=== PATIENT | male | born 1960 | race Caucasian/White ===

== ENCOUNTER 2018-01-18 11:42 | Day surgery (SDC) | payer MEDICARE ==
[~2018-01-18 11:42] MED LIST: Buffered Lidocaine 0.9% SYRIN* 5 ML/SYR SYRINGE INTRADERM ONE
[2018-01-18] MEDS ORDERED: Lidocaine 1% MPF* 2 ML VIAL ONE (11:58)
[2018-01-18] MEDS ORDERED: Neomycin/Polymy/Dex OPHTH.OIN* 3.5 GM ONE (11:58)
[2018-01-18] MEDS ORDERED: Tropicamide 1% OPTH.SOL* BTL ONE (11:58)
[2018-01-18] MEDS ORDERED: Ketorolac 0.5% OPHTH (NF) 0.5 % 5 ML BTL ONE (11:58)
[2018-01-18] MEDS ORDERED: Povidone Iodine 5% OPTH* 30 ML BTL ONE (11:58)
[2018-01-18] MEDS ORDERED: acetaZOLAMIDE TAB* 250 MG ONE (11:58)
[2018-01-18] MEDS ORDERED: Cyclopentolate 1% OPTH.SOL* 2 ML BTL ONE (11:58)
[2018-01-18] MEDS ORDERED: Phenylephrine 2.5% OPTH.SOL* 2 ML BTL ONE (11:58)
[2018-01-18] MEDS ORDERED: Tetracaine 0.5% OPTH.SOL 4 ML* 1 DROP BTL ONE (11:58)
[2018-01-18] MEDS ORDERED: Midazolam* 1 MG/ML 2 ML VIAL (2 MG) ONE ×2 (12:57→13:01)
[2018-01-18] MEDS ORDERED: fentaNYL* 50 MCG/ML 2 ML VIAL (100 MCG VIAL) ONE (13:01)
[2018-01-18 13:53] VITALS: BP 96/56
--- NOTE | 2018-01-19 14:24 | OP ---
DATE OF OPERATION: 01/18/18 - [facility] DATE OF : 64 SURGEON: Iban Dawson MD. PRE-OP DIAGNOSIS: Cataract, right eye. POST-OP DIAGNOSIS: Cataract, right eye. ANESTHESIA: Monitored anesthesia care. OPERATIVE PROCEDURE: Extracapsular cataract extraction of the right eye with intraocular lens implant. IMPLANTS: SN60WF 19.5 diopter lens to the right eye. COMPLICATIONS: None. DESCRIPTION OF PROCEDURE: The patient was given phenylephrine 2.5% and cyclopentolate 1% eyedrops to the operative eye in the preoperative area. The patient was brought to the operating room where a time-out was taken to identify the correct patient, site and side of surgery. The patient's right eye was prepped and draped in the usual sterile fashion with 5% Betadine. A second time-out was taken to verify the correct patient, site and side of surgery, and correct lens selection. A lid speculum was placed to the right eye. A 1-mm paracentesis blade was used to make a clear corneal incision in the superotemporal position. Preservative-free 1% lidocaine was injected into the anterior chamber. DisCoVisc was then injected into the anterior chamber. A 2.75-mm keratome blade was used to make a triplanar incision at the inferotemporal position. A cystotome initiated a capsulorrhexis, which was completed with Utrata forceps in a continuous and curvilinear manner. Hydrodissection of the lens was performed with BSS on a cannula. The lens could be spun in the capsular bag. The phacoemulsification handpiece was used with a pquswq-azf-ocskrfo technique to remove the nucleus in its entirety with 6.64 CDE. The I/A handpiece then removed the residual cortical lens material. DisCoVisc was injected to inflate the capsular bag. The planned SN60WF 19.5 diopter lens was injected in the capsular bag. The residual DisCoVisc was removed from the eye with the I/A handpiece. The corneal incisions were hydrated and no leaks occurred at physiologic pressure around 20 mmHg per palpation. The lid speculum was removed and drapes removed. Maxitrol ointment was placed to the surface of the operative eye. An adhesive patch and shield was then placed on the operative eye. The patient was taken to the postoperative area in stable condition. [id number]/[facility] #: [id number] MTDRadha
== END 2018-01-18 13:50 | disposition home or self-care (01) ==
LOC: OREAST 11:42
PROVIDERS: ATTEND Student in an Organized Health Care Education/Training Program
DX: H25.11 Age-related nuclear cataract, right eye (principal); M06.9 Rheumatoid arthritis, unspecified; Z79.899 Other long term (current) drug therapy; Z87.891 Personal history of nicotine dependence; Z86.718 Personal history of other venous thrombosis and embolism; J44.9 Chronic obstructive pulmonary disease, unspecified
CPT/HCPCS: A9270-GY; J2250; J3010; V2632

== ENCOUNTER 2018-01-25 10:43 | Day surgery (SDC) | payer MEDICARE ==
[~2018-01-25 10:43] MED LIST changes: +Acetaminophen TAB* 325 MG PO PRN; +Cyclopentolate 1% OPTH.SOL* 2 ML BTL ONE; +Ketorolac 0.5% OPHTH (NF) 0.5 % 5 ML BTL ONE; +Lidocaine 1% MPF* 2 ML VIAL ONE; +Neomycin/Polymy/Dex OPHTH.OIN* 3.5 GM ONE; +Phenylephrine 2.5% OPTH.SOL* 2 ML BTL ONE; +Povidone Iodine 5% OPTH* 30 ML BTL ONE; +Tetracaine 0.5% OPTH.SOL 4 ML* 1 DROP BTL ONE; +Tropicamide 1% OPTH.SOL* BTL ONE; +acetaZOLAMIDE TAB* 250 MG ONE
[2018-01-25] MEDS ORDERED: Midazolam* 1 MG/ML 2 ML VIAL (2 MG) ONE (11:46)
[2018-01-25] MEDS ORDERED: fentaNYL* 50 MCG/ML 2 ML VIAL (100 MCG VIAL) ONE (11:47)
[2018-01-25 12:49] VITALS: BP 110/74
--- NOTE | 2018-01-26 08:53 | OP ---
DATE OF OPERATION: 01/25/18 - [facility] DATE OF : 64 SURGEON: Iban Dawson MD PRE-OP DIAGNOSIS: Cataract, left eye. POST-OP DIAGNOSIS: Cataract, left eye. OPERATIVE PROCEDURE: Extracapsular cataract extraction of the left eye with intraocular lens implant. ANESTHESIA: Monitored anesthesia care. IMPLANTS: SN60WF 20.0 diopter lens to the left eye. COMPLICATIONS: None. DESCRIPTION OF PROCEDURE: The patient was given phenylephrine 2.5% and cyclopentolate 1% eyedrops to the operative eye in the preoperative area. The patient was brought to the operating room, where a time-out was taken to identify the correct patient, site and side of surgery. The patient's left eye was prepped and draped in the usual sterile fashion with 5% Betadine. A second time-out was taken to verify the correct patient, site and side of surgery, and correct lens selection. A lid speculum was placed to the left eye. A 1-mm paracentesis blade was used to make a clear corneal incision in the inferotemporal position. Preservative-free 1% lidocaine was injected in the anterior chamber. DisCoVisc was then injected into the anterior chamber. A 2.75-mm keratome blade was used to make a triplanar incision at the superotemporal position. A cystotome initiated a capsulorrhexis, which was completed with Utrata forceps in a continuous and curvilinear manner. Hydrodissection of the lens was performed with BSS on a cannula. The lens could be spun in the capsular bag. The phacoemulsification handpiece was used with a ggjqvo-fip-xxllfdm technique to remove the nucleus in its entirety with 4.05 CDE. The I/A handpiece then removed the residual cortical lens material. DisCoVisc was injected to inflate the capsular bag. The planned SN60WF 20.0 diopter lens was injected in the capsular bag. The residual DisCoVisc was removed from the eye with the I/A handpiece. The corneal incisions were hydrated and no leaks occurred at physiologic pressure around 20 mmHg per palpation. The lid speculum was removed and drapes removed. Maxitrol ointment was placed to the surface of the operative eye. An adhesive patch and shield was then placed on the operative eye. The patient was taken to the postoperative area in stable condition. [id number]/[facility] #: [id number] [facility] SYSTEMRadha
== END 2018-01-25 12:43 | disposition home or self-care (01) ==
LOC: OREAST 10:43
PROVIDERS: ATTEND Student in an Organized Health Care Education/Training Program
DX: H25.12 Age-related nuclear cataract, left eye (principal); M06.9 Rheumatoid arthritis, unspecified; Z79.899 Other long term (current) drug therapy; Z87.891 Personal history of nicotine dependence
CPT/HCPCS: A9270-GY; J2250; J3010; V2632

== ENCOUNTER 2018-06-14 09:01 | Day surgery (SDC) | payer MEDICARE ==
[~2018-06-14 09:01] MED LIST changes: -Acetaminophen TAB* 325 MG PO PRN; -Cyclopentolate 1% OPTH.SOL* 2 ML BTL ONE; -Ketorolac 0.5% OPHTH (NF) 0.5 % 5 ML BTL ONE; -Lidocaine 1% MPF* 2 ML VIAL ONE; -Neomycin/Polymy/Dex OPHTH.OIN* 3.5 GM ONE; -Phenylephrine 2.5% OPTH.SOL* 2 ML BTL ONE; -Povidone Iodine 5% OPTH* 30 ML BTL ONE; -Tetracaine 0.5% OPTH.SOL 4 ML* 1 DROP BTL ONE; -Tropicamide 1% OPTH.SOL* BTL ONE; -acetaZOLAMIDE TAB* 250 MG ONE
[2018-06-14] MEDS ORDERED: ceFAZolin 2 GM PREMIX (*) 2 GM/50 ML BAG IVPB ONE (09:30)
[2018-06-14] MEDS ORDERED: Midazolam* 1 MG/ML 2 ML VIAL (2 MG) ONE (11:52)
[2018-06-14] MEDS ORDERED: Lidocaine 2% PF* 10 ML AMP ONE (11:57)
[2018-06-14] MEDS ORDERED: Propofol* 10 MG/ML 20 ML BTL IV PUSH ONE (12:06)
[2018-06-14] MEDS ORDERED: Lidocaine 2% PF * 5 ML VIAL ONE (12:07)
[2018-06-14] MEDS ORDERED: fentaNYL* 50 MCG/ML 2 ML VIAL (100 MCG VIAL) IV PRN (12:09)
[2018-06-14] MEDS ORDERED: Ondansetron INJ* 2 MG/ML VIAL IV PRN (12:09)
[2018-06-14] MEDS ORDERED: Naloxone* 0.4 MG/ML 1 ML VIAL IV PRN (12:09)
[2018-06-14 12:48] VITALS: BP 125/82
--- NOTE | 2018-06-15 06:03 | OP ---
OPERATIVE REPORT: DATE OF OPERATION: 06/14/18 DATE OF : 64 SURGEON: Dr. Aubrey Rutledge. CORRUGATOR OPERATOR: OUMOU Carlos PRE-OP DIAGNOSIS: Chronic draining ulcer, right second proximal interphalangeal joint with a hammert oe. POST-OP DIAGNOSIS: Chronic draining ulcer, right second proximal interphalangeal joint with a hammer toe. OPERATIVE PROCEDURE: Right second toe amputation at the MTP joint. DESCRIPTION OF PROCEDURE: The patient was taken to the operating room, ankle Esmarch applied. We ma de a transverse elliptical incision mid portion of the proximal phalanx. We dissected proximally to the MTP joint disarticulating the toe. The toe was sent to pathology. The wound appeared to be allegra r. The tourniquet was dropped with hemostasis obtained. We then closed dorsal to plantar with 2-0 V icryl sutures, 3-0 nylon for the skin, and compression dressing applied. [id number]/[facility] [facility] #: [id number]
== END 2018-06-14 13:43 | disposition home or self-care (01) ==
LOC: OR 09:01
PROVIDERS: ATTEND Orthopaedic Surgery
DX: M86.671 Other chronic osteomyelitis, right ankle and foot (principal); M20.41 Other hammer toe(s) (acquired), right foot; G82.20 Paraplegia, unspecified; Z87.828 Personal history of other (healed) physical injury and trauma; Z87.891 Personal history of nicotine dependence; E66.01 Morbid (severe) obesity due to excess calories; F41.8 Other specified anxiety disorders
CPT/HCPCS: 88305; 88311; J0690; J2001; J2250; J2704

== ENCOUNTER 2018-07-05 11:27 | Day surgery (SDC) | payer MEDICARE ==
[~2018-07-05 11:27] MED LIST changes: +Famotidine IV* 10 MG/ML 2 ML (20 mg) IV ONE; +Famotidine IV* 10 MG/ML 2 ML (20 mg) ONE; +ceFAZolin 2 GM PREMIX (*) 2 GM/50 ML BAG IVPB ONE
[2018-07-05] MEDS ORDERED: Midazolam* 1 MG/ML 5 ML VIAL (5 MG) ONE (14:33)
[2018-07-05] MEDS ORDERED: fentaNYL* 50 MCG/ML 2 ML VIAL (100 MCG VIAL) ONE (14:33)
[2018-07-05] MEDS ORDERED: ROPIVACAINE 5 MG/ML 30 ML BTL (0.5%) ONE (15:12)
[2018-07-05] MEDS ORDERED: Acetaminophen TAB* 325 MG PO PRN (15:33)
[2018-07-05] MEDS ORDERED: DiMENhydriNATE IV* 50 MG/ML VIAL IV PUSH PRN (15:33)
[2018-07-05] MEDS ORDERED: HYDROmorphone INJ* 0.5 MG/0.5 ML SYRINGE IV PRN (15:33)
[2018-07-05] MEDS ORDERED: Naloxone* 0.4 MG/ML 1 ML VIAL IV PRN (15:33)
[2018-07-05] MEDS ORDERED: Dexamethasone IV* 4 MG/ML 1 ML (4 MG) ONE (16:03)
[2018-07-05] MEDS ORDERED: Propofol* 10 MG/ML 20 ML BTL IV PUSH ONE ×2 (16:03→17:50)
[2018-07-05] MEDS ORDERED: Ondansetron INJ* 2 MG/ML VIAL ONE (16:03)
[2018-07-05] MEDS ORDERED: Ketorolac INJ* 30 MG/ML 1 ML VIAL ONE (16:03)
[2018-07-05] MEDS ORDERED: Lidocaine 2% PF * 5 ML VIAL ONE (16:04)
[2018-07-05 18:43] VITALS: BP 157/95
--- NOTE | 2018-07-06 01:31 | OP ---
DATE OF OPERATION: 07/05/18 - [facility] DATE OF : 64 SURGEON: Aubrey Lyon MD [employer] DIRECTOR: OUMOU Peres. An energy assistant was needed for the entirety of the procedure to aid in positioning of the arm and retraction. ANESTHESIOLOGIST: Dr. Bernardo ANESTHESIA: General. PRE-OP DIAGNOSIS: Left hand extensor tendon subluxation with ulnar deviation of the MCP joint secondary to rheumatoid arthritis. POST-OP DIAGNOSIS: Left hand extensor tendon subluxation with ulnar deviation of the MCP joint secondary to rheumatoid arthritis. OPERATIVE PROCEDURE: 1. Extensor tendon centralization left index to small finger with distally based split extensor tendon transfer around the radio-collateral ligament. 2. Cross intrinsic tendon transfer left index finger to middle finger. 3. Cross intrinsic tendon transfer left middle finger to ring finger. 4. Cross intrinsic tendon transfer eft ring finger to small finger. INDICATIONS: The patient has rheumatoid arthritis. He has had extensive history with this. He is currently off his biologic medications due to history of infection. He has severe ulnar deviation and extensor tendon subluxation of the MCP joint without dislocated joints. I talked to him about the risks and benefits of surgery including the risks of infection, risk of over correction, and risk of recurrence of the ulnar deviation despite surgery. I told him I wanted to augment the extensor tendon centralization with crossed intrinsic transfers to try prevent radial deviation, recurrence of the ulnar deviation and give him some more dynamic stability. He understood the risk of decreased function of the hand. He wished to proceed. ESTIMATED BLOOD LOSS: 2 mL. COMPLICATIONS: None. FINDINGS: See above and below. DESCRIPTION OF PROCEDURE: The patient was seen in the preoperative holding area. The correct side, site, and procedure were identified. We came back to the operating room where the hand was prescrubbed and then prepped and draped in usual fashion. A time-out was performed. I began by making a transverse incision over the dorsum of the MCP joints. Dissection was carried down through the subcutaneous tissue preserving and this may need traversing veins is possible. Full thickness flaps were raised off the extensor solorzano of each finger. The ulnar intrinsic was identified on each finger and was released releasing the oblique and transverse fibers. The extensor tendons were all dislocated ulnarly. I went ahead and released the ulnar sagittal band of each finger. I then began around the index finger and created a distally based tail of extensor tendon. A stay suture was placed at the split in the tendon distally so as to prevent propagation of tendon split. The splint into the tail was then woven around the radial collateral ligament from distal to proximal, back up and then woven back into the extensor tendon setting appropriate tension to keep the extensor tendon centralized over the dorsum of the finger. I then performed the same extensor tendon centralization procedure for the middle, ring, and then the small fingers. Each finger was checked in full flexion to ensure no overcorrection. After all the extensor tendons were centralized, I went ahead and placed an imbricating suture through the radio-collateral ligament of the index finger. This was a 3-0 Ethibond suture. I then took my ulnar intrinsic from the index finger and rounded it to the radial collateral ligament of the middle finger and sutured in place with 3-0 Ethibond suture. I then took the ulnar intrinsic to the middle finger and rounded it to the radial collateral ligament of the ring finger and sutured it in place. I then took the ulnar intrinsic to the ring finger and rounded it to the radial collateral ligament of the small finger. Again, this was sutured in place with 3-0 Ethibond suture. After the crossed intrinsic transfers were performed, there was excellent alignment of the fingers. The ulnar deviation been corrected off the extensor tendons were centralized over the dorsum of the MCP joint and stayed centralized to a full flexion and extension arch. The tension on the transfers looked good, so I went ahead and irrigated out the wound. The michael-incisional area was infiltrated with 0.5% ropivacaine. The skin was closed to 4-0 nylon suture. The wounds were dressed with Xeroform, 4x4s, sterile Webril, and then a short arm splint holding MCP joints in extension and the IP joints in gentle flexion was placed. It was placed in such a way to hold all the fingers radially deviated. At this point, everything was looking good, so we had deflated the tourniquet. We switched that to 250 mmHg throughout the case. The fingers all pinked up immediately. He was woken up and taken to recovery room in stable condition. [id number]/[facility] #: [id number] [facility]IMIN[facility] INSANERadha
== END 2018-07-05 19:03 | disposition home or self-care (01) ==
LOC: OR 11:27
PROVIDERS: ATTEND Orthopaedic Surgery Hand Surgery
DX: M05.9 Rheumatoid arthritis with rheumatoid factor, unspecified (principal); M20.032 Swan-neck deformity of left finger(s); M20.031 Swan-neck deformity of right finger(s); M20.022 Boutonniere deformity of left finger(s); M20.021 Boutonniere deformity of right finger(s); M20.092 Other deformity of left finger(s); M20.091 Other deformity of right finger(s); G82.20 Paraplegia, unspecified
CPT/HCPCS: J0690; J1100; J1885; J2250; J2405; J2704; J2795; J3010

== ENCOUNTER 2019-02-07 10:47 | Day surgery (SDC) | payer MEDICARE ==
[~2019-02-07 10:47] MED LIST changes: -Buffered Lidocaine 0.9% SYRIN* 5 ML/SYR SYRINGE INTRADERM ONE; +Buffered Lidocaine 1% SYRIN* 1 ML/SYRINGE INTRADERM ONE; -Famotidine IV* 10 MG/ML 2 ML (20 mg) IV ONE; -Famotidine IV* 10 MG/ML 2 ML (20 mg) ONE; +Lactated Ringers 1000 ML Bag* 1,000 ML IV SCH; +Sodium Citrate/Citric Acid* 15 ML UDC PO ONE; -ceFAZolin 2 GM PREMIX (*) 2 GM/50 ML BAG IVPB ONE
[2019-02-07] MEDS ORDERED: Buffered Lidocaine 1% SYRIN* 1 ML/SYRINGE INTRADERM ONE (11:13)
[2019-02-07] MEDS ORDERED: Sodium Citrate/Citric Acid* 15 ML UDC ONE (11:13)
[2019-02-07] MEDS ORDERED: Bupivacaine 0.25% SDV PF* 10 ML VIAL INJ ONE (11:52)
[2019-02-07] MEDS ORDERED: Lidocaine 2% PF * 5 ML VIAL ONE (13:20)
[2019-02-07] MEDS ORDERED: Propofol* 10 MG/ML 20 ML BTL ONE (13:20)
[2019-02-07] MEDS ORDERED: fentaNYL* 50 MCG/ML 2 ML VIAL (100 MCG VIAL) ONE (13:21)
[2019-02-07] MEDS ORDERED: ceFAZolin 2 GM in NS PREMIX(*) 2 GM/100 ML BAG IVPB ONE (13:44)
[2019-02-07] MEDS ORDERED: EPHEDrine (Pressors)* 50 MG/ML VIAL ONE (13:56)
[2019-02-07 15:16] VITALS: BP 143/94
--- NOTE | 2019-02-07 22:26 | OP ---
DATE OF OPERATION: 02/07/19 - [facility] DATE OF : 64 SURGEON: Aubrey Lyon MD. ENVIRONMENTAL FIELD SERVICES TECHNICIAN: None. ANESTHESIOLOGIST: Dr. Collins. ANESTHESIA: General. PRE-OP DIAGNOSIS: Left carpal tunnel syndrome. POST-OP DIAGNOSIS: Left carpal tunnel syndrome. OPERATIVE PROCEDURE: Left endoscopic carpal tunnel release. INDICATION: Rhys has carpal tunnel syndrome. We had talked about risks and benefits. He had wanted to proceed with the procedure. ESTIMATED BLOOD LOSS: 1 mL. COMPLICATIONS: None. FINDINGS: See above and below. DESCRIPTION OF PROCEDURE: Rhys was seen in the preoperative holding area. The correct site, side, and procedure were identified. We came back to the operating room and the arm was prepped and draped in the usual fashion and time- out was performed. The arm was exsanguinated with the Esmarch and the tourniquet was inflated to 250 mmHg. I made a 1-cm transverse incision just ulnar to the palmaris longus tendon and just proximal to the wrist flexion crease. I bluntly spread down and opened transversely the distal antebrachial fascia. A 2-prong skin hook was placed. I then used the synovial stripper followed by sequentially larger dilators and ultimately the MicroAire endoscopic carpal tunnel system was introduced. Under direct visualization, I released the entirety of the transverse carpal ligament, first releasing the distal 50% to 75% and then releasing the proximal aspect. I confirmed the release and everything was looking good. I released the remainder of the distal antebrachial fascia proximally with the tenotomy scissors. The wound was irrigated out and the skin was closed with a 4-0 Prolene suture and a Steri-Strip. A 0.25% Marcaine was infiltrated all around the operative areas. Soft dressings were applied and he was taken to the recovery room in stable condition. [id number]/[facility] #: [id number] [facility]ITALRadha
== END 2019-02-07 15:10 | disposition home or self-care (01) ==
LOC: OR 10:47
PROVIDERS: ATTEND Orthopaedic Surgery Hand Surgery
DX: G56.02 Carpal tunnel syndrome, left upper limb (principal); J44.9 Chronic obstructive pulmonary disease, unspecified; Z87.891 Personal history of nicotine dependence; M19.90 Unspecified osteoarthritis, unspecified site; F41.8 Other specified anxiety disorders
CPT/HCPCS: A9270-GY; J0690; J2704; J3010; J3490

== ENCOUNTER 2021-07-25 14:33 | Inpatient (IN) ==
[2021-07-25 15:29] LABS: ABS Lymphocytes 0.3 10^3/ul (1.0-4.8); ABS Monocytes 0.2 10^3/ul (0-0.8); ABS Neutrophils 11.7 10^3/ul (1.5-7.7); Eosinophil % 0.1 %; Hematocrit 40 % (42-52); Hemoglobin 13.5 g/dL (14.0-18.0); Lymphocyte % 2.1 %; Mean Corpuscular HGB Conc 34 g/dL (31-36); Mean Corpuscular Hemoglobin 31 pg (27-31); Mean Corpuscular Volume 91 fL (80-94); Mean Platelet Volume 8.5 fL (7.4-10.4); Platelet Count 148 10^3/uL (150-450); Red Blood Count 4.39 10^6 /uL (4.18-5.48); Red Cell Distribution Width 17 % (10-15); White Blood Count 12.2 10^3/uL (3.5-10.8)
[2021-07-25 15:35] LABS: INR 1.41 (0.86-1.15)
[2021-07-25 15:36] LABS: Albumin 3.6 g/dL (3.2-5.2); Calcium 9.2 mg/dL (8.6-10.3); Total Bilirubin 0.6 mg/dL (0.2-1.0)
[2021-07-25 15:41] LABS: Troponin I 0.01 ng/mL (<0.03)
[2021-07-25 15:42] LABS: Albumin/Globulin Ratio 1.1 (1-3); C Reactive Protein 124.95 mg/L (<8.01); EGFR African American 91.8 (>60); EGFR Non-African American 75.9 (>60); Globulin 3.4 g/dL (2-4)
[2021-07-25] MEDS ORDERED: Cefepime 2 GM in NS 0.9% 50 ML 50 ML IVPB ONE (16:16)
[2021-07-25] MEDS ORDERED: Lactated Ringers 1000 ml BAG IV.FLUID IV ONE (16:16)
[2021-07-25] MEDS ORDERED: metroNIDAZOLE IV 500 MG/100ML 500 MG/100 ML BAG IVPB ONE (16:16)
[2021-07-25] MEDS ORDERED: Cefepime 2 GM IV - ED ONCE IV ONE (16:38)
[2021-07-25] MEDS ORDERED: Lactated Ringers 1000 ml BAG 1,000 ML IV ONE (17:32)
[2021-07-25] MEDS ORDERED: Vancomycin 1,500 MG in NS 0.9% 250 ml 250 ML IVPB ONE (18:00)
[2021-07-25 22:00] LABS: Digoxin 1.3 ng/ml (0.8-2.0)
[2021-07-25] MEDS ORDERED: Vancomycin per Pharmacy 1 EA NOTE FOLLOW UP SCH (22:00)
[2021-07-26] MEDS ORDERED: Lactated Ringers 1000 ml BAG 1,000 ML IV SCH (02:00)
[2021-07-26] MEDS ORDERED: Vancomycin 1000 MG in NS 0.9% 250 ML IVPB SCH (04:00)
[2021-07-26] MEDS ORDERED: Cefepime 2 GM in Dextrose 2 GM/50 ML BAG IV SCH (05:00)
[2021-07-26 05:09] LABS: ABS Lymphocytes 0.5 10^3/ul (1.0-4.8); ABS Monocytes 0.3 10^3/ul (0-0.8); Eosinophil % 0.1 %; Hematocrit 35 % (42-52); Lymphocyte % 5.3 %; Mean Corpuscular HGB Conc 34 g/dL (31-36); Mean Corpuscular Hemoglobin 31 pg (27-31); Mean Corpuscular Volume 91 fL (80-94); Mean Platelet Volume 8.3 fL (7.4-10.4); Platelet Count 117 10^3/uL (150-450); Red Blood Count 3.87 10^6 /uL (4.18-5.48); Red Cell Distribution Width 16 % (10-15); White Blood Count 8.9 10^3/uL (3.5-10.8)
[2021-07-26 05:41] LABS: Albumin 2.8 g/dL (3.2-5.2); Calcium 8.2 mg/dL (8.6-10.3); EGFR African American 106.2 (>60); EGFR Non-African American 87.8 (>60); Potassium 3.6 mmol/L (3.5-5.0); Total Protein 5.7 g/dL (6.4-8.9)
[2021-07-26 05:42] LABS: C Reactive Protein 212.47 mg/L (<8.01); Globulin 2.9 g/dL (2-4); Total Bilirubin 0.5 mg/dL (0.2-1.0)
[2021-07-26] MEDS: DULoxetine DR 60 mg CAP PO SCH (08:36)
[2021-07-26] MEDS: Vancomycin 1000 MG in NS 0.9% 250 ML IVPB SCH (17:44)
[2021-07-27] MEDS: Vancomycin 1000 MG in NS 0.9% 250 ML IVPB SCH (05:12)
[2021-07-27 05:25] LABS: ABS Eosinophils 0.1 10^3/ul (0-0.6); ABS Lymphocytes 0.6 10^3/ul (1.0-4.8); ABS Monocytes 0.3 10^3/ul (0-0.8); ABS Neutrophils 4.2 10^3/ul (1.5-7.7); Eosinophil % 2.6 %; Hematocrit 37 % (42-52); Hemoglobin 12.5 g/dL (14.0-18.0); Lymphocyte % 11.1 %; Mean Corpuscular HGB Conc 34 g/dL (31-36); Mean Corpuscular Hemoglobin 31 pg (27-31); Mean Corpuscular Volume 92 fL (80-94); Mean Platelet Volume 8.3 fL (7.4-10.4); Platelet Count 105 10^3/uL (150-450); Red Blood Count 4.05 10^6 /uL (4.18-5.48); Red Cell Distribution Width 17 % (10-15); White Blood Count 5.3 10^3/uL (3.5-10.8)
[2021-07-27 05:56] LABS: Albumin 2.8 g/dL (3.2-5.2); Albumin/Globulin Ratio 0.9 (1-3); Calcium 8.2 mg/dL (8.6-10.3); EGFR African American 120.1 (>60); EGFR Non-African American 99.3 (>60); Potassium 3.6 mmol/L (3.5-5.0); Total Bilirubin 0.3 mg/dL (0.2-1.0); Total Protein 5.8 g/dL (6.4-8.9)
[2021-07-27] MEDS: DULoxetine DR 60 mg CAP PO SCH (08:05)
[2021-07-27] MEDS ORDERED: Vancomycin Trough Check NOTE FOLLOW UP ONE (15:30)
[2021-07-28 06:41] LABS: Calcium 8.2 mg/dL (8.6-10.3); EGFR African American 115.1 (>60); EGFR Non-African American 95.2 (>60); Magnesium 1.8 mg/dL (1.9-2.7); Phosphorus 3.7 mg/dL (2.5-5.0); Potassium 3.7 mmol/L (3.5-5.0)
[2021-07-28 06:46] LABS: ABS Eosinophils 0.2 10^3/ul (0-0.6); ABS Lymphocytes 0.8 10^3/ul (1.0-4.8); ABS Monocytes 0.4 10^3/ul (0-0.8); ABS Neutrophils 3.2 10^3/ul (1.5-7.7); Eosinophil % 3.7 %; Hematocrit 37 % (42-52); Hemoglobin 12.4 g/dL (14.0-18.0); Lymphocyte % 17.1 %; Mean Corpuscular HGB Conc 34 g/dL (31-36); Mean Corpuscular Hemoglobin 31 pg (27-31); Mean Corpuscular Volume 92 fL (80-94); Mean Platelet Volume 8.4 fL (7.4-10.4); Platelet Count 110 10^3/uL (150-450); Red Blood Count 3.98 10^6 /uL (4.18-5.48); Red Cell Distribution Width 17 % (10-15); White Blood Count 4.7 10^3/uL (3.5-10.8)
[2021-07-28] MEDS: DULoxetine DR 60 mg CAP PO SCH (09:49)
[2021-07-28 12:05] VITALS: BP 104/80
== END 2021-07-28 13:20 | disposition home or self-care (01) | DRG 872 ==
LOC: MED 14:33 → ED 14:33 → SUATTDRO 20:27
PROVIDERS: ADMIT Hospitalist; ATTEND Internal Medicine

== ENCOUNTER 2022-02-11 12:25 | Inpatient (IN) ==
[2022-02-11 16:52] LABS: ABS Eosinophils 0.3 10^3/ul (0-0.6); ABS Lymphocytes 1.3 10^3/ul (1.0-4.8); ABS Monocytes 0.6 10^3/ul (0-0.8); ABS Neutrophils 6.5 10^3/ul (1.5-7.7); Eosinophil % 3.7 %; Hematocrit 37 % (42-52); Hemoglobin 12.3 g/dL (14.0-18.0); Lymphocyte % 15.2 %; Mean Corpuscular HGB Conc 34 g/dL (31-36); Mean Corpuscular Hemoglobin 30 pg (27-31); Mean Corpuscular Volume 89 fL (80-94); Mean Platelet Volume 8.1 fL (7.4-10.4); Platelet Count 226 10^3/uL (150-450); Red Blood Count 4.09 10^6 /uL (4.18-5.48); Red Cell Distribution Width 15 % (10-15); White Blood Count 8.8 10^3/uL (3.5-10.8)
[2022-02-11 17:22] LABS: Albumin 3.4 g/dL (3.2-5.2); C Reactive Protein 44.06 mg/L (<8.01); Calcium 9.3 mg/dL (8.6-10.3); Globulin 3.4 g/dL (2-4); Total Bilirubin 0.5 mg/dL (0.2-1.0); Total Protein 6.8 g/dL (6.4-8.9); eGFR CKD-EPI 99.4 (>60)
[2022-02-11 17:33] LABS: Potassium 4.7 mmol/L (3.5-5.0)
[2022-02-11] MEDS ORDERED: Piperacillin/Tazobac ADVAN 3.375 GM in NS 0.9% 100 ml BAG 100 ML IV ONE (19:05)
[2022-02-11] MEDS ORDERED: Vancomycin 1,500 MG in NS 0.9% 250 ml 250 ML IVPB ONE (19:30)
[2022-02-11] MEDS ORDERED: Lactated Ringers 1000 ml BAG 1,000 ML IV ONE (19:31)
[2022-02-11] MEDS ORDERED: Gadoteridol (CONTRAST) 279.3 MG/ML 10 ML IV ONE (21:07)
[2022-02-12] MEDS ORDERED: Ondansetron 4 mg VIAL 2 MG/ML 2 ml VIAL IV PRN (00:18)
[2022-02-12] MEDS ORDERED: Zosyn per Pharmacy NOTE FOLLOW UP SCH (03:00)
[2022-02-12] MEDS ORDERED: Vancomycin per Pharmacy 1 EA NOTE FOLLOW UP SCH (03:00)
[2022-02-12] MEDS: ZOSYN 3.375 GM Q8H per EXTENDED INFUSION IV SCH ×3 (03:03→22:35)
[2022-02-12] MEDS: NS 0.9% 1000 ml BAG 1,000 ML IV SCH ×2 (04:43→20:30)
[2022-02-12] MEDS ORDERED: NS 0.45% 1000 ml BAG 1,000 ML IV SCH (05:00)
[2022-02-12 05:35] LABS: ABS Eosinophils 0.2 10^3/ul (0-0.6); ABS Monocytes 0.5 10^3/ul (0-0.8); ABS Neutrophils 4.8 10^3/ul (1.5-7.7); Eosinophil % 2.9 %; Hematocrit 34 % (42-52); Hemoglobin 11.5 g/dL (14.0-18.0); Lymphocyte % 15.1 %; Mean Corpuscular HGB Conc 34 g/dL (31-36); Mean Corpuscular Hemoglobin 30 pg (27-31); Mean Corpuscular Volume 89 fL (80-94); Mean Platelet Volume 7.7 fL (7.4-10.4); Platelet Count 203 10^3/uL (150-450); Red Blood Count 3.87 10^6 /uL (4.18-5.48); Red Cell Distribution Width 15 % (10-15); White Blood Count 6.5 10^3/uL (3.5-10.8)
[2022-02-12 05:44] LABS: Calcium 8.9 mg/dL (8.6-10.3); Magnesium 1.7 mg/dL (1.9-2.7); Potassium 4.1 mmol/L (3.5-5.0)
[2022-02-12 05:50] LABS: eGFR CKD-EPI 77.3 (>60)
[2022-02-12] MEDS ORDERED: Vancomycin 1,000 MG in NS 0.9% 250 ml 250 ML IVPB ONE (09:00)
[2022-02-12] MEDS ORDERED: Vancomycin 1,000 MG - ED ONCE IVPB ONE (09:00)
[2022-02-12] MEDS: DULoxetine DR 60 mg CAP PO SCH (09:15)
[2022-02-12] MEDS ORDERED: Vancomycin 1,500 MG in NS 0.9% 250 ml 250 ML IVPB ONE (15:00)
[2022-02-12] MEDS ORDERED: Midazolam 2 mg/2 ml VIAL 1 mg/ml 2 ml VIAL (2 mg) ONE (15:10)
[2022-02-12] MEDS ORDERED: fentaNYL 100 mcg/2 ml 50 MCG/ML VIAL ONE (15:10)
[2022-02-12] MEDS ORDERED: Propofol 10 MG/ML 20 ML BTL ONE (15:10)
[2022-02-12] MEDS ORDERED: Rocuronium 50 mg VIAL 10 mg/ml 5 ml VIAL (50 mg) ONE (15:27)
[2022-02-12] MEDS ORDERED: Ondansetron 4 mg VIAL 2 MG/ML 2 ml VIAL ONE (16:26)
[2022-02-12] MEDS ORDERED: Vancomycin 1000 MG in NS 0.9% 250 ML IVPB SCH (21:00)
[2022-02-13] MEDS: ZOSYN 3.375 GM Q8H per EXTENDED INFUSION IV SCH (03:48)
[2022-02-13 05:43] LABS: Hematocrit 31 % (42-52); Hemoglobin 10.4 g/dL (14.0-18.0); Mean Platelet Volume 8.2 fL (7.4-10.4); Platelet Count 174 10^3/uL (150-450)
[2022-02-13] MEDS ORDERED: Vancomycin Random Level NOTE FOLLOW UP ONE (06:00)
[2022-02-13 06:11] LABS: Potassium 3.9 mmol/L (3.5-5.0); Vancomycin Random 16.8 mcg/mL; eGFR CKD-EPI 95.8 (>60)
[2022-02-13] MEDS: NS 0.9% 1000 ml BAG 1,000 ML IV SCH ×3 (06:31→23:27)
[2022-02-13] MEDS ORDERED: Vancomycin Trough Check NOTE FOLLOW UP ONE (08:30)
[2022-02-13] MEDS: DULoxetine DR 60 mg CAP PO SCH (08:57)
[2022-02-13] MEDS: Enoxaparin 40 MG/0.4 ML SYR SUBCUT SCH (10:39)
[2022-02-13] MEDS ORDERED: Vancomycin 1,500 MG in NS 0.9% 250 ml 250 ML IVPB ONE (18:00)
[2022-02-14] MEDS: DULoxetine DR 60 mg CAP PO SCH (08:48)
[2022-02-14] MEDS: Enoxaparin 40 MG/0.4 ML SYR SUBCUT SCH (08:51)
[2022-02-14] MEDS ORDERED: DALBAVANCIN HCL (NF) 500 MG/25 ML VIAL IVPB ONE (09:23)
[2022-02-14 11:34] VITALS: BP 108/56
[2022-02-14] MEDS ORDERED: DALBAVANCIN HCL (NF) 1,000 MG in D5W 250 ml BAG 250 ML IVPB ONE (12:00)
[2022-02-14] MEDS ORDERED: Vancomycin 1,500 MG in NS 0.9% 250 ml 250 ML IVPB SCH (18:00)
[2022-02-17] MEDS ORDERED: Vancomycin Trough Check NOTE FOLLOW UP ONE (17:30)
== END 2022-02-14 14:20 | disposition home or self-care (01) | DRG 580 ==
LOC: ED 12:25 → EDHOLD 02-12 00:40 → SUATTDRO 02-12 00:40 → SSU 02-12 19:53
PROVIDERS: ADMIT Internal Medicine; ATTEND Hospitalist

== ENCOUNTER 2022-06-05 12:16 | Observation (INO) ==
[2022-06-05] MEDS ORDERED: cefTRIAXone 2 gm/50 mL D5W 2 GM/50 ML BAG IV ONE (13:45)
[2022-06-05] MEDS ORDERED: Vancomycin 1,500 MG in NS 0.9% 250 ml 250 ML IVPB ONE (14:30)
[2022-06-05 16:06] LABS: ABS Lymphocytes 0.6 10^3/ul (1.0-4.8); ABS Monocytes 0.4 10^3/ul (0-0.8); ABS Neutrophils 3.8 10^3/ul (1.5-7.7); Eosinophil % 0.2 %; Hematocrit 48 % (42-52); Hemoglobin 15.6 g/dL (14.0-18.0); Mean Corpuscular HGB Conc 32 g/dL (31-36); Mean Corpuscular Hemoglobin 28 pg (27-31); Mean Corpuscular Volume 86 fL (80-94); Mean Platelet Volume 8.3 fL (7.4-10.4); Nucleated Red Blood Cells % 0.2; Platelet Count 97 10^3/uL (150-450); Red Blood Count 5.64 10^6 /uL (4.18-5.48); Red Cell Distribution Width 18 % (10-15); White Blood Count 4.8 10^3/uL (3.5-10.8)
[2022-06-05 16:17] LABS: Albumin 3.4 g/dL (3.2-5.2); C Reactive Protein 61.36 mg/L (<8.01); Globulin 3.5 g/dL (2-4); Total Bilirubin 0.5 mg/dL (0.2-1.0); Total Protein 6.9 g/dL (6.4-8.9); eGFR CKD-EPI 102.3 (>60)
[2022-06-05 16:22] LABS: Activated Partial Thrombo Time 34.7 seconds (26.0-38.0); INR 1.05 (0.89-1.11)
[2022-06-05 16:57] LABS: High Sensitivity Troponin 1 Hr 126 pg/mL (<20)
[2022-06-05 17:58] LABS: Urine Appearance Cloudy; Urine Bilirubin Negative (Negative); Urine Blood Trace (Intact) (Negative); Urine Color Yellow; Urine Ketones Negative (Negative); Urine Nitrite Positive (Negative); Urine Protein Negative (Negative); Urine Urobilinogen 0.2 (Negative) (Negative)
[2022-06-05 17:59] LABS: Urine Glucose Negative (Negative)
[2022-06-05 18:32] LABS: Urine Bacteria 3+ (Absent); Urine Red Blood Cell 1+(3-5/hpf) (Absent); Urine White Blood Cell 3+(>20/hpf) (Absent)
[2022-06-05] MEDS ORDERED: Iohexol 350 (CONTRAST) 500 ML MDV IV ONE (19:08)
[2022-06-05 21:57] LABS: Digoxin 0.7 ng/ml (0.8-2.0); Magnesium 1.7 mg/dL (1.9-2.7)
[2022-06-05] MEDS ORDERED: Magnesium Sulfate IV 3 GM in NS 0.9% 100 ml BAG 100 ML IVPB ONE (22:00)
[2022-06-05] MEDS ORDERED: Lactated Ringers 1000 ml BAG 1,000 ML IV SCH ×2 (22:00)
[2022-06-05 22:13] LABS: TSH Ultra Thyroid Stim Horm 1.23 mcIU/mL (0.34-5.60)
[2022-06-05 22:40] LABS: Vitamin D Total 25(OH) 97.9 ng/mL (20-50)
[2022-06-05] MEDS ORDERED: Enoxaparin 40 MG/0.4 ML SYR SUBCUT SCH (23:00)
[2022-06-05] MEDS ORDERED: Magnesium Sulfate 2 GM IV (Premix) IVPB ONE (23:00)
[2022-06-05 23:21] LABS: High Sensitivity Troponin 3 Hr 169 pg/mL (<20)
[2022-06-05] MEDS ORDERED: Lactated Ringers 1000 ml BAG 1,000 ML IV ONE (23:42)
[2022-06-06] MEDS ORDERED: Magnesium Sulfate 1 GM IV 1 GM/100 ML BAG IV ONE
[2022-06-06 01:05] LABS: HDL Cholesterol 38.9 mg/dL
[2022-06-06 05:56] LABS: ABS Basophils 0.1 10^3/ul (0-0.2); ABS Monocytes 0.9 10^3/ul (0-0.8); ABS Neutrophils 5.7 10^3/ul (1.5-7.7); Eosinophil % 0.2 %; Hematocrit 34 % (42-52); Hemoglobin 11.3 g/dL (14.0-18.0); Mean Corpuscular HGB Conc 33 g/dL (31-36); Mean Corpuscular Hemoglobin 29 pg (27-31); Mean Corpuscular Volume 86 fL (80-94); Mean Platelet Volume 8.7 fL (7.4-10.4); Platelet Count 119 10^3/uL (150-450); Red Blood Count 3.95 10^6 /uL (4.18-5.48); Red Cell Distribution Width 18 % (10-15); White Blood Count 7.7 10^3/uL (3.5-10.8)
[2022-06-06] MEDS ORDERED: Lactated Ringers 1000 ml BAG 1,000 ML IV SCH (06:00)
[2022-06-06 06:03] LABS: INR 1.12 (0.89-1.11)
[2022-06-06 06:13] LABS: Anion Gap 8 mmol/L (2-11); Blood Urea Nitrogen 12 mg/dL (6-24); CO2 Carbon Dioxide 24 mmol/L (22-32); Calcium 8.4 mg/dL (8.6-10.3); Chloride 105 mmol/L (101-111); Glucose 104 mg/dL (70-100); Magnesium 2.3 mg/dL (1.9-2.7); Sodium 137 mmol/L (135-145)
[2022-06-06 06:25] LABS: LDH 170 U/L (140-271)
[2022-06-06] MEDS ORDERED: Perflutren Lipid Microsphere 3 ML VIAL ONE (08:26)
[2022-06-06 08:56] LABS: ALT 10 U/L (7-52); AST 14 U/L (13-39); Alkaline Phosphatase 49 U/L (35-149); Globulin 2.9 g/dL (2-4); Total Protein 5.9 g/dL (6.4-8.9)
[2022-06-06] MEDS ORDERED: Cholecalciferol (VIT D3) 1,000 unit TAB PO SCH (09:00)
[2022-06-06] MEDS: DULoxetine DR 60 mg CAP PO SCH (09:38)
[2022-06-06] MEDS: cefTRIAXone 1 gm/50 mL D5W 1 GM/50 ML BAG IV SCH (10:34)
[2022-06-06] MEDS: Enoxaparin 100 MG/ML SYR SUBCUT SCH (20:10)
[2022-06-07] MEDS: Enoxaparin 100 MG/ML SYR SUBCUT SCH (09:22)
[2022-06-07] MEDS: DULoxetine DR 60 mg CAP PO SCH (09:23)
[2022-06-07] MEDS: cefTRIAXone 1 gm/50 mL D5W 1 GM/50 ML BAG IV SCH (09:28)
[2022-06-07 13:25] VITALS: BP 103/77
== END 2022-06-07 12:50 | disposition home or self-care (01) ==
LOC: EDHOLD 12:16 → ED 12:16 → SUATTDRO 21:27 → MEDTELE 23:23
PROVIDERS: ADMIT Internal Medicine; ATTEND Student in an Organized Health Care Education/Training Program

== ENCOUNTER 2022-09-02 07:10 | Inpatient (IN) ==
[2022-09-02 10:17] LABS: ABS Lymphocytes 0.5 10^3/ul (1.0-4.8); ABS Monocytes 0.3 10^3/ul (0-0.8); ABS Neutrophils 10.9 10^3/ul (1.5-7.7); Hematocrit 38 % (42-52); Hemoglobin 12.4 g/dL (14.0-18.0); Lymphocyte % 3.9 %; Mean Corpuscular HGB Conc 33 g/dL (31-36); Mean Corpuscular Hemoglobin 29 pg (27-31); Mean Corpuscular Volume 88 fL (80-94); Mean Platelet Volume 7.8 fL (7.4-10.4); Platelet Count 183 10^3/uL (150-450); Red Blood Count 4.32 10^6 /uL (4.18-5.48); Red Cell Distribution Width 15 % (10-15); White Blood Count 11.7 10^3/uL (3.5-10.8)
[2022-09-02 10:22] LABS: Activated Partial Thrombo Time 35.5 seconds (26.0-38.0); INR 1.06 (0.89-1.11)
[2022-09-02 10:35] LABS: High Sens Troponin Baseline 36 pg/mL (<20)
[2022-09-02 11:24] LABS: ALT 17 U/L (7-52); AST 22 U/L (13-39); Albumin 3.4 g/dL (3.2-5.2); Albumin/Globulin Ratio 0.9 (1-3); Alkaline Phosphatase 83 U/L (35-149); Anion Gap 11 mmol/L (2-11); Blood Urea Nitrogen 16 mg/dL (6-24); C Reactive Protein 237.62 mg/L (<8.01); CO2 Carbon Dioxide 24 mmol/L (22-32); Calcium 8.8 mg/dL (8.6-10.3); Chloride 93 mmol/L (101-111); Creatine Kinase 76 U/L (10-223); Globulin 3.7 g/dL (2-4); Glucose 115 mg/dL (70-100); Potassium 3.9 mmol/L (3.5-5.0); Sodium 128 mmol/L (135-145); Total Protein 7.1 g/dL (6.4-8.9); eGFR CKD-EPI 94.6 (>60)
[2022-09-02 11:27] LABS: CRP High Sensitivity > 80.00 mg/L (<2.00)
[2022-09-02 11:38] LABS: High Sensitivity Troponin 1 Hr 29 pg/mL (<20)
[2022-09-02 11:48] LABS: Erythrocyte Sed Rate 100 mm/Hr (0-19)
[2022-09-02] MEDS ORDERED: Iodixanol (CONTRAST) 320 MG/ML 100 ML SDV IV ONE (12:05)
[2022-09-02] MEDS ORDERED: cefTRIAXone 1 gm/50 mL D5W 1 GM/50 ML BAG IV SCH ×2 (18:15→21:00)
[2022-09-02] MEDS ORDERED: Levalbuterol 1.25MG/0.5ML NEB.SOL INH PRN (18:21)
[2022-09-02] MEDS: DULoxetine DR 60 mg CAP PO SCH (21:01)
[2022-09-03] MEDS: DULoxetine DR 60 mg CAP PO SCH (08:58)
[2022-09-03 09:21] LABS: Urine Appearance Clear; Urine Bilirubin Negative (Negative); Urine Blood Negative (Negative); Urine Color Straw; Urine Glucose Negative (Negative); Urine Ketones Trace (Negative); Urine Nitrite Negative (Negative); Urine Protein Negative (Negative); Urine Specific Gravity 1.011 (1.002-1.030); Urine Urobilinogen Negative (Negative)
[2022-09-03 09:25] LABS: Urine Bacteria Absent (Absent); Urine Red Blood Cell Absent (Absent); Urine White Blood Cell Trace(0-5/hpf) (Absent)
[2022-09-03 10:28] LABS: Albumin 3.4 g/dL (3.2-5.2); CO2 Carbon Dioxide 21 mmol/L (22-32); Calcium 9.1 mg/dL (8.6-10.3); Chloride 97 mmol/L (101-111); Sodium 128 mmol/L (135-145)
[2022-09-03 10:32] LABS: ABS Monocytes 0.7 10^3/ul (0-0.8); ABS Neutrophils 8.2 10^3/ul (1.5-7.7); Anion Gap 10 mmol/L (2-11); Eosinophil % 0.3 %; Hematocrit 43 % (42-52); Hemoglobin 13.8 g/dL (14.0-18.0); Lymphocyte % 9.7 %; Mean Corpuscular HGB Conc 33 g/dL (31-36); Mean Corpuscular Hemoglobin 29 pg (27-31); Mean Corpuscular Volume 89 fL (80-94); Mean Platelet Volume 7.8 fL (7.4-10.4); Nucleated Red Blood Cells % 0.1; Platelet Count 210 10^3/uL (150-450); Red Blood Count 4.77 10^6 /uL (4.18-5.48); Red Cell Distribution Width 16 % (10-15); White Blood Count 9.9 10^3/uL (3.5-10.8)
[2022-09-03 10:34] LABS: ALT 12 U/L (7-52); Albumin/Globulin Ratio 0.8 (1-3); Alkaline Phosphatase 73 U/L (35-149); Blood Urea Nitrogen 18 mg/dL (6-24); Globulin 4.2 g/dL (2-4); Glucose 120 mg/dL (70-100); Total Protein 7.6 g/dL (6.4-8.9); eGFR CKD-EPI 100.8 (>60)
[2022-09-03] MEDS ORDERED: Ondansetron ODT 4 mg TAB 4 MG TAB PO PRN (13:06)
[2022-09-03 13:52] LABS: Potassium Redraw 3.8 mmol/L (3.5-5.0)
[2022-09-03] MEDS ORDERED: Calcium Carb (TUMS) 500 mg CHEW TAB PO PRN (13:58)
[2022-09-03] MEDS ORDERED: Lactated Ringers 500 ml BAG 500 ML IV SCH (14:00)
[2022-09-03 14:19] LABS: Osmolality Serum 280 mOsm/kg (275-295)
[2022-09-04 06:03] LABS: ABS Lymphocytes 1.2 10^3/ul (1.0-4.8); ABS Monocytes 1.1 10^3/ul (0-0.8); ABS Neutrophils 5.4 10^3/ul (1.5-7.7); Eosinophil % 0.2 %; Hematocrit 39 % (42-52); Hemoglobin 11.8 g/dL (14.0-18.0); Lymphocyte % 15.2 %; Mean Corpuscular HGB Conc 30 g/dL (31-36); Mean Corpuscular Hemoglobin 28 pg (27-31); Mean Corpuscular Volume 92 fL (80-94); Nucleated Red Blood Cells % 0.1; Platelet Count 183 10^3/uL (150-450); Red Blood Count 4.23 10^6 /uL (4.18-5.48); Red Cell Distribution Width 16 % (10-15); White Blood Count 7.8 10^3/uL (3.5-10.8)
[2022-09-04 07:34] LABS: CO2 Carbon Dioxide 16 mmol/L (22-32); Calcium 8.4 mg/dL (8.6-10.3); Chloride 103 mmol/L (101-111); Sodium 134 mmol/L (135-145)
[2022-09-04 07:40] LABS: Anion Gap 15 mmol/L (2-11); Blood Urea Nitrogen 25 mg/dL (6-24); Glucose 75 mg/dL (70-100); eGFR CKD-EPI 93.4 (>60)
[2022-09-04] MEDS: DULoxetine DR 60 mg CAP PO SCH (09:02)
[2022-09-04] MEDS ORDERED: Lactated Ringers 500 ml BAG 500 ML IV SCH (11:00)
[2022-09-04 11:20] VITALS: BP 91/61
== END 2022-09-04 14:50 | disposition home or self-care (01) | DRG 871 ==
LOC: EDHOLD 07:10 → ED 07:10 → MEDTELE 17:38 → SSU 09-03 22:17
PROVIDERS: ADMIT Internal Medicine; ATTEND Internal Medicine